=== PATIENT | female | born 1975 | race Hispanic/Latino ===

== ENCOUNTER → 2016-08-06 | Outpatient (CLI) | payer OTHER | LOC: GMAM 10:40 | PROVIDERS: ATTEND Family Medicine | DX: E55.9 Vitamin D deficiency, unspecified (principal) ==

== ENCOUNTER → 2016-09-10 | Outpatient (CLI) | payer OTHER | LOC: MAMMO 14:43 | PROVIDERS: ATTEND Obstetrics & Gynecology | DX: Z12.31 Encounter for screening mammogram for malignant neoplasm of breast (principal) ==

== ENCOUNTER → 2016-12-11 | Outpatient (CLI) | payer OTHER | END | disposition home or self-care (01) | LOC: GMAM 10:15 | PROVIDERS: ATTEND Family Medicine | DX: E55.9 Vitamin D deficiency, unspecified (principal) ==

== ENCOUNTER → 2017-06-02 | Outpatient (CLI) | payer OTHER | LOC: GMAM 10:20 | PROVIDERS: ATTEND Family Medicine | DX: E55.9 Vitamin D deficiency, unspecified (principal) ==

== ENCOUNTER → 2017-09-03 | Outpatient (CLI) | payer OTHER | LOC: GMAM 10:51 | PROVIDERS: ATTEND Family Medicine | DX: E55.9 Vitamin D deficiency, unspecified (principal) ==

== ENCOUNTER → 2017-09-27 | Outpatient (CLI) | payer OTHER | LOC: GMAJS 16:41 | PROVIDERS: ATTEND Physician Assistant | DX: N30.00 Acute cystitis without hematuria (principal) ==

== ENCOUNTER → 2017-12-22 | Outpatient (CLI) | payer BC | LOC: GMAM 10:46 | PROVIDERS: ATTEND Family Medicine | DX: E55.9 Vitamin D deficiency, unspecified (principal) ==

== ENCOUNTER → 2018-05-16 | Outpatient (CLI) | payer BC | LOC: GMAM 11:09 | PROVIDERS: ATTEND Family Medicine | DX: E55.9 Vitamin D deficiency, unspecified (principal) ==

== ENCOUNTER → 2018-05-23 | Outpatient (CLI) | payer BC | LOC: GMAM 08:52 | PROVIDERS: ATTEND Family Medicine | DX: R77.0 Abnormality of albumin (principal); E83.52 Hypercalcemia ==

== ENCOUNTER → 2018-08-17 | Outpatient (CLI) | payer BC ==
--- NOTE | 2018-08-18 14:04 | CT ---
EXAM DESCRIPTION: Abdoment/Pelvis w/o Contrast CLINICAL HISTORY: ABDOMINAL PAIN COMPARISON: None Available TECHNIQUE: CT of the abdomen only was performed without IV contrast. This exam was performed according to our departmental dose-optimization program, which includes automated exposure control, adjustment of the mA and/or kV according to patient size and/or use of iterative reconstruction technique. FINDINGS: Lung bases:Unremarkable. Abdominal aorta and branches: No aneurysm. IVC/Portal Vein:Normal. Ascites:None. Pneumoperitoneum:None. Adenopathy:None. Omentum:Normal. Distal esophagus:No hiatal hernia or wall thickening. Stomach:Unremarkable. Small bowel/mesentery: Visualized portions of the small bowel are unremarkable. Liver:No hepatomegaly, mass or intrahepatic biliary duct dilation. Gallbladder: The gallbladder is surgically absent. Spleen:No splenomegaly or focal splenic lesion. Pancreas:No mass, pancreatic duct dilation or peripancreatic inflammation/fluid. Adrenals:No adrenal nodule. Kidneys/ureters: The distal ureters are not included. The kidneys and ureters are otherwise unremarkable. Bladder: Not visualized. Reproductive organs: The left ovary is partially visualized and otherwise unremarkable. The uterus and right ovary are not included on this exam. Colon: Partially visualized without colonic wall thickening or pericolonic inflammation. Appendix:No appendicitis. Bones: Degenerative disc disease at L5-S1. Abdominal Wall:No hernia or other mass. IMPRESSION: Prior cholecystectomy, but no intra-abdominal abnormality to explain patient's symptoms. Electronically signed by: Aayush Dong MD 08/18/2018 2:02 PM CDT
== END ==
LOC: RAD 17:04
PROVIDERS: ATTEND Nurse Practitioner Family
DX: R10.84 Generalized abdominal pain (principal); Z90.49 Acquired absence of other specified parts of digestive tract

== ENCOUNTER → 2018-09-01 | Outpatient (CLI) | payer BC ==
--- NOTE | 2018-09-01 12:52 | CT ---
PROVIDED CLINICAL HISTORY/REASON FOR EXAM: FEMALE PELVIC PAIN DYSPAREUNIA STUDY TYPE/TECHNIQUE: CT PELVIS WITHOUT IV CONTRAST This exam was performed according to our departmental dose-optimization program, which includes automated exposure control, adjustment of the mA and/or kV according to patient size and/or use of iterative reconstruction technique. COMPARISON: None at time of initial interpretation. FINDINGS: There is a new appendicolith within the appendix. Air within the appendix distal to the appendicolith, makes acute appendicitis unlikely. Visualized bowel is grossly unremarkable without evidence of obstruction or focal inflammatory change. Vasculature appears unremarkable. No adenopathy. No focal fluid collection. No free air. Hysterectomy. No adnexal mass. The bladder is mildly distended. No acute or suspicious osseous abnormality. IMPRESSION: 1. No definite evidence of acute process in the abdomen or pelvis. 2. New appendicolith within the appendix. However there is gas within the appendix distal to this stone, which makes acute appendicitis less likely. However recommend correlation for focal pain. Electronically signed by: Alfonso Juarez MD 09/01/2018 12:50 PM CDT
== END ==
LOC: CT 09:01
PROVIDERS: ATTEND Family Medicine
DX: K38.1 Appendicular concretions (principal); N94.10 Unspecified dyspareunia

== ENCOUNTER → 2018-10-06 | Outpatient (CLI) | payer BC | LOC: GMAM 16:52 | PROVIDERS: ATTEND Family Medicine | DX: R10.84 Generalized abdominal pain (principal) ==

== ENCOUNTER → 2019-03-13 | Outpatient (CLI) | payer BC | LOC: GMAM 10:45 | PROVIDERS: ATTEND Family Medicine | DX: E55.9 Vitamin D deficiency, unspecified (principal); E78.2 Mixed hyperlipidemia; E11.9 Type 2 diabetes mellitus without complications ==

== ENCOUNTER → 2019-12-04 | Outpatient (CLI) | payer BC | LOC: GMAM 10:46 | PROVIDERS: ATTEND Family Medicine | DX: E55.9 Vitamin D deficiency, unspecified (principal); E78.2 Mixed hyperlipidemia; E11.9 Type 2 diabetes mellitus without complications ==